=== PATIENT | female | born 1935 | race Caucasian/White ===

== ENCOUNTER 2016-11-29 08:48 | Outpatient (CLI) | payer MEDICARE ==
[2016-11-29 09:31] LABS: BASOPHILS 0.2 % (0-2); EOSINOPHILS 1.6 % (0-7); HEMATOCRIT 33.7 % (36.0-48.0); HEMOGLOBIN 11.5 g/dL (12-16); IMMATURE GRANULOCYTES 0.3 % (0-5); LYMPHOCYTES 13.1 % (15-50); MCH 28.3 pg (26.0-34.0); MCHC 34.1 g/dL (31.0-37.0); MEAN PLATELET VOLUME 10.1 fL (7.4-10.4); MONOCYTES 10.7 % (2-11); NEUTROPHILS 74.1 % (40-80); RBC 4.06 10x6/uL (4.00-5.40); RDW 21.6 % (11.5-14.5); WBC 11.4 10x3/uL (4.8-10.8)
[2016-11-29] MEDS ORDERED: ALDACTONE100 MG PO (09:31)
[2016-11-29] MEDS ORDERED: MULTIPLE VITAMI1 TA1 PO (09:32)
[2016-11-29] MEDS ORDERED: FUROSEMIDE20 MG PO (09:32)
[2016-11-29] MEDS ORDERED: LEVOTHYROXINE75 MCG PO (09:32)
[2016-11-29] MEDS ORDERED: AMBIEN5 MG PO (09:33)
[2016-11-29] MEDS ORDERED: COREG6.25 MG PO (09:33)
[2016-11-29] MEDS ORDERED: PHENERGAN25 M1 PO (09:34)
[2016-11-29] MEDS ORDERED: ELIQUIS2.5 MG PO (09:34)
[2016-11-29 09:37] LABS: PLATELET COUNT 252 10x3/uL (130-400)
[2016-11-29 09:44] LABS: APTT 34.9 SECONDS (22.8-39.4); INR 1.21 (0.85-1.17); PROTIME 15.2 SECONDS (11.6-15.0)
[2016-11-29 09:45] VITALS: BP 119/53; BMI 19.7
[2016-11-29 09:47] LABS: ANION GAP 15.4 mmol/L (8-16); CALCIUM 8.9 mg/dL (8.5-10.1); CARBON DIOXIDE 23.9 mmol/L (21.0-32.0); CREATININE - SERUM 3.3 mg/dL (0.6-1.3); POTASSIUM - SERUM 4.3 mmol/L (3.5-5.1)
--- NOTE | 2016-11-29 15:21 | NUR ---
1345--IV DC'D, PT UP TO DRESS WITH 'S ASSISTANCE. ROCAEL DOBBS 1410--DISCHARGE INSTRUCTIONS GIVEN, PT VERBALIZES UNDERSTANDING. PT OFF UNIT VIA WC. ROCAEL DOBBS
== END 2016-11-29 14:10 | disposition home or self-care (01) ==
LOC: D.OPS 08:48 → D.CT 10:00 → D.OPS 10:00 → D.CT 11:00 → D.OPS 14:10
PROVIDERS: Specialist
DX: K74.69 Other cirrhosis of liver (principal); I10 Essential (primary) hypertension; Z01.812 Encounter for preprocedural laboratory examination